=== PATIENT | male | born 1970 | race Caucasian/White ===

== ENCOUNTER → 2016-11-26 | Outpatient (CLI) | payer OTHER ==
[2016-11-26 13:17] LABS: HEMOGLOBIN 15.5 g/dL (14.1-18.0); LYMPH # 1.7 K/mm3 (0.7-4.5); LYMPH % 23.7 % (10-50)
[2016-11-26 14:45] LABS: BUN 15 mg/dL (7-18); PROSTATE-SPECIFIC AG SCREEEN 0.8 ng/mL (0.0-4.0)
[2016-11-26 15:06] LABS: GFR (ESTIMATED) 90 ML/MIN (>60)
== END ==
LOC: LAB 12:29
PROVIDERS: Family Medicine
DX: E11.65 Type 2 diabetes mellitus with hyperglycemia (principal); Z80.42 Family history of malignant neoplasm of prostate
CPT/HCPCS: G0103